=== PATIENT | male | born 1970 | race Caucasian/White ===

== ENCOUNTER 2016-08-11 08:07 | Emergency (ER) | payer SELFPAY ==
[~2016-08-11] VITALS: Ht 177.8 cm; Wt 108.0 kg
[2016-08-11] MEDS ORDERED: SODIUM CHLORIDE FLUSH 10ML SYR IVF ONE (09:00)
[2016-08-11] MEDS ORDERED: SODIUM CHLORIDE 0.9% 1,000ML IVBOLUS ONE (09:00)
[2016-08-11] MEDS ORDERED: AMPICILLIN/SULBACTAM 3 GM in SODIUM CHLORIDE 0.9% 100 ML IV ONE (09:30)
[2016-08-11 09:42] LABS: BLOOD UREA NITROGEN 12 mg/dL (7-18)
[2016-08-11] MEDS ORDERED: CEFAZOLIN 1,000 MG IM ONE (10:00)
[2016-08-11] MEDS ORDERED: CEFAZOLIN 1,000 MG ONE (10:00)
[2016-08-11 11:05] VITALS: BP 123/74
[2016-08-12 15:07] LABS: ANA SCREEN POSITIVE (Negative)
== END 2016-08-11 11:47 | disposition left against medical advice (07) ==
LOC: ED 09:15
DX: L03.116 Cellulitis of left lower limb (principal); L03.115 Cellulitis of right lower limb; D50.0 Iron deficiency anemia secondary to blood loss (chronic); F11.10 Opioid abuse, uncomplicated; K92.2 Gastrointestinal hemorrhage, unspecified
CPT/HCPCS: 36415; 80048; 82040; 82607; 82728; 83540; 83550; 83605; 85025; 86038; 86039; 87040; 87070; 87077; 87186; 87205; 93970; 96372; 99285; J0690